=== PATIENT | female | born 1995 | race Caucasian/White ===

== ENCOUNTER → 2019-10-25 | Outpatient (CLI) | payer OTHER | LOC: LAB 14:39 | PROVIDERS: ATTEND Physician Assistant Medical | DX: Z33.1 Pregnant state, incidental (principal) | CPT/HCPCS: 36415; 84702 ==

== ENCOUNTER → 2019-11-21 | Outpatient (CLI) | payer OTHER ==
[2019-11-21 15:16] LABS: BASO % 1 % (0-3); EOS # 0.1 x10^3/uL (0.0-0.7); EOS % 1 % (0-3); HEMATOCRIT 35.5 % (36.0-47.0); HEMOGLOBIN 11.4 g/dL (12.0-15.5); LYMPH # 1.7 x10^3/uL (1.0-4.8); LYMPH % 25 % (24-48); MEAN CORPUSCULAR HEMOGLOBIN 26 pg (25-35); MEAN CORPUSCULAR HGB CONC 32 g/dL (31-37); MEAN CORPUSCULAR VOLUME 81 fL (79-100); MONO # 0.7 x10^3/uL (0.0-1.1); MONO % 10 % (0-9); NEUT # 4.6 x10^3uL (1.8-7.7); NEUT % 64 % (31-73); PLATELET COUNT 345 x10^3/uL (140-400); RED BLOOD COUNT 4.41 x10^6/uL (3.50-5.40); RED CELL DISTRIBUTION WIDTH 19.1 % (11.5-14.5); WHITE BLOOD COUNT 7.2 x10^3/uL (4.0-11.0)
[2019-11-22 14:29] LABS: FREE T4 1.01 ng/dL (0.76-1.46); THYROID STIM HORMONE (TSH) 0.831 uIU/mL (0.358-3.740)
[2019-11-22 16:07] LABS: RUBELLA IGG ANTIBODY 2.44 index (Immune >0.99)
== END ==
LOC: LAB 13:37
PROVIDERS: ATTEND Obstetrics & Gynecology
DX: Z34.91 Encounter for supervision of normal pregnancy, unspecified, first trimester (principal); Z3A.00 Weeks of gestation of pregnancy not specified
CPT/HCPCS: 36415; 81220; 84439; 84443; 85025; 86592; 86703; 86762; 86787; 86803; 86850; 86900; 86901; 87340

== ENCOUNTER → 2019-11-22 | Outpatient (CLI) | payer OTHER ==
--- NOTE | 2019-11-22 20:20 | RAD ---
OB <14 WKS W/TV DATE: 11/22/2019 12:00 AM INDICATION: Reason: ENCOUTER OF PREG IN TRI. LMP 09/23/2019. COMPARISON: None. TECHNIQUE: Transabdominal ultrasonography of the pelvis was performed. Color Doppler and duplex were utilized as appropriate. FINDINGS: The uterus measures 11.7 x 7.7 cm. There is living intrauterine gestation with heart rate of 178 beats per minute. There is small yolk sac present. South Heart-rump length measurement of 1.9 cm corresponds with estimated ultrasound gestational age of 8 weeks and 3 days. 2 areas with subchorionic blood products, the first anteriorly measures 4.1 x 4.6 x 0.8 cm. The second posteriorly into the right measures 3.0 x 0.9 x 0.8 cm There is no free pelvic fluid. Incidental nabothian cysts. The right ovary measures 3.7 x 3.5 x 2.0 cm. The left ovary measures 5.8 x 3.8 x 3.8 cm. No evidence of ovarian torsion. There is normal blood flow to both ovaries by color Doppler with arterial and venous waveforms detected. Left ovarian complex cyst measuring 3.8 cm, probably corpus luteal cyst. IMPRESSION: 1. Single living intrauterine gestation. 2. South Heart-rump length corresponds with estimated ultrasound gestational age of 8 weeks and 3 days. 3. Two areas of subchorionic blood products noted. Electronically signed by: Francis Jacome MD (11/22/2019 8:17 PM) [id number]
== END ==
LOC: US 17:19
PROVIDERS: ATTEND Obstetrics & Gynecology
DX: Z34.91 Encounter for supervision of normal pregnancy, unspecified, first trimester (principal); N88.8 Other specified noninflammatory disorders of cervix uteri; Z3A.08 8 weeks gestation of pregnancy
CPT/HCPCS: 76801; 76817

== ENCOUNTER → 2020-01-10 | Outpatient (CLI) | payer OTHER | LOC: LAB 13:51 | PROVIDERS: ATTEND Internal Medicine Cardiovascular Disease | DX: Z20.828 Contact with and (suspected) exposure to other viral communicable diseases (principal) | CPT/HCPCS: 36415; U0003 ==

== ENCOUNTER → 2020-01-16 | Outpatient (CLI) | payer OTHER | LOC: LAB 15:30 | PROVIDERS: ATTEND Obstetrics & Gynecology | DX: Z34.92 Encounter for supervision of normal pregnancy, unspecified, second trimester (principal); Z3A.00 Weeks of gestation of pregnancy not specified | CPT/HCPCS: 36415; 81511 ==

== ENCOUNTER → 2020-01-17 | Outpatient (CLI) | payer OTHER | END | disposition home or self-care (01) | LOC: LAB 11:10 | PROVIDERS: ATTEND Internal Medicine Cardiovascular Disease | DX: Z20.828 Contact with and (suspected) exposure to other viral communicable diseases (principal) | CPT/HCPCS: C9803; U0003; 36415 ==

== ENCOUNTER → 2020-02-16 | Outpatient (CLI) | payer OTHER ==
--- NOTE | 2020-02-16 14:22 | RAD ---
EXAM: Obstetrics sonogram. HISTORY: anatomy survey. TECHNIQUE: Sonographic imaging of a gravid uterus was performed. COMPARISON: 11/22/2019. FINDINGS: There is a single intrauterine fetus in cephalic presentation with a normal heart rate of 136 bpm. There is a three-vessel umbilical cord with normal insertion. The stomach, kidneys, bladder, spine, brain, facial profile, extremities and heart are unremarkable. No breathing motion is seen during the exam. This is within normal limits for a gestational age. The cervix is closed and measures 5.2 cm in length. The maternal adnexal regions are unremarkable. There is a posterior placenta without evidence of placenta previa. The anatomic fluid index is normal at 12.3 cm. The biparietal diameter is 4.75 cm, corresponding with 20 weeks and 3 days and the 29th percentile. The head circumference is 18.06 cm, corresponding with 20 weeks and 3 days and the 25th percentile. The abdominal circumference is 15.52 cm, corresponding with 20 weeks and 5 days and the 38th percentile. The femoral length is 3.66 cm, corresponding with 21 weeks and 4 days and the 68th percentile. The estimated gestational age based on combined ultrasound measurements is 20 weeks and 6 days and the estimated weight is 394 g. IMPRESSION: 1. Single intrauterine fetus with normal heart rate and gestational age based on ultrasound measurements of 20 weeks and 6 days. The estimated gestational age based on LMP is also 20 weeks and 6 days. 2. Unremarkable anatomy survey. Electronically signed by: Sada Calle MD (02/16/2020 2:19 PM) [facility]
== END | disposition home or self-care (01) ==
LOC: US 09:48
PROVIDERS: ATTEND Obstetrics & Gynecology
DX: O26.842 Uterine size-date discrepancy, second trimester (principal); Z3A.20 20 weeks gestation of pregnancy
CPT/HCPCS: 76805

== ENCOUNTER → 2020-03-19 | Outpatient (CLI) | payer OTHER ==
--- NOTE | 2020-03-20 07:45 | RAD ---
INDICATION: Reason: LLE SWELLING, / Spl. Instructions: / History: COMPARISON: None. TECHNIQUE: Grayscale, color and doppler ultrasound images were obtained of the left lower extremity venous vasculature. LEFT: No thrombus identified in the common femoral vein, femoral vein, popliteal vein or visualized calf veins. IMPRESSION: * No thrombus identified in deep venous system of the left lower extremity. Electronically signed by: Merrill Shultz MD (03/20/2020 7:42 AM) [id number]
== END | disposition home or self-care (01) ==
LOC: US 17:25
PROVIDERS: ATTEND Obstetrics & Gynecology
DX: R22.42 Localized swelling, mass and lump, left lower limb (principal); M79.89 Other specified soft tissue disorders
CPT/HCPCS: 93971

== ENCOUNTER → 2020-03-19 | Outpatient (CLI) | payer OTHER | END | disposition home or self-care (01) | LOC: LAB 15:07 | PROVIDERS: ATTEND Obstetrics & Gynecology | DX: Z34.92 Encounter for supervision of normal pregnancy, unspecified, second trimester (principal); Z3A.25 25 weeks gestation of pregnancy | CPT/HCPCS: 87086 ==

== ENCOUNTER → 2020-03-20 | Outpatient (CLI) | payer OTHER ==
[2020-03-20 11:30] LABS: BASO % 0 % (0-3); EOS # 0.1 x10^3/uL (0.0-0.7); EOS % 1 % (0-3); HEMATOCRIT 30.3 % (36.0-47.0); HEMOGLOBIN 9.9 g/dL (12.0-15.5); LYMPH # 2.2 x10^3/uL (1.0-4.8); LYMPH % 17 % (24-48); MEAN CORPUSCULAR HEMOGLOBIN 27 pg (25-35); MEAN CORPUSCULAR HGB CONC 33 g/dL (31-37); MEAN CORPUSCULAR VOLUME 83 fL (79-100); MONO # 0.6 x10^3/uL (0.0-1.1); MONO % 5 % (0-9); NEUT # 10.2 x10^3uL (1.8-7.7); NEUT % 78 % (31-73); PLATELET COUNT 386 x10^3/uL (140-400); RED BLOOD COUNT 3.66 x10^6/uL (3.50-5.40); RED CELL DISTRIBUTION WIDTH 15.5 % (11.5-14.5); WHITE BLOOD COUNT 13.1 x10^3/uL (4.0-11.0)
== END | disposition home or self-care (01) ==
LOC: LAB 07:39
PROVIDERS: ATTEND Obstetrics & Gynecology
DX: Z34.92 Encounter for supervision of normal pregnancy, unspecified, second trimester (principal); Z3A.25 25 weeks gestation of pregnancy
CPT/HCPCS: 36415; 82950; 85025

== ENCOUNTER → 2020-04-29 | Outpatient (CLI) | payer OTHER | LOC: LAB 09:34 | PROVIDERS: ATTEND Internal Medicine Cardiovascular Disease | DX: R05 Cough (principal); R09.81 Nasal congestion; Z20.828 Contact with and (suspected) exposure to other viral communicable diseases | CPT/HCPCS: U0003 ==

== ENCOUNTER 2020-05-21 13:02 | Emergency (ER) | payer OTHER ==
[~2020-05-21] VITALS: Ht 162.6 cm; Wt 95.5 kg
[2020-05-21] MEDS: IV NORMAL SALINE 1,000ML 1,000 ML IV ONE (13:15)
[2020-05-21 13:45] LABS: BASO # 0.1 x10^3/uL (0.0-0.2); BASO % 1 % (0-3); EOS # 0.1 x10^3/uL (0.0-0.7); EOS % 1 % (0-3); HEMOGLOBIN 11.4 g/dL (12.0-15.5); LYMPH # 2.3 x10^3/uL (1.0-4.8); LYMPH % 17 % (24-48); MEAN CORPUSCULAR HEMOGLOBIN 27 pg (25-35); MEAN CORPUSCULAR HGB CONC 32 g/dL (31-37); MEAN CORPUSCULAR VOLUME 84 fL (79-100); MONO # 0.6 x10^3/uL (0.0-1.1); MONO % 5 % (0-9); NEUT # 10.5 x10^3uL (1.8-7.7); NEUT % 77 % (31-73); PLATELET COUNT 389 x10^3/uL (140-400); RED BLOOD COUNT 4.31 x10^6/uL (3.50-5.40); RED CELL DISTRIBUTION WIDTH 20.3 % (11.5-14.5); WHITE BLOOD COUNT 13.6 x10^3/uL (4.0-11.0)
[2020-05-21 14:01] LABS: CALCIUM 9.6 mg/dL (8.5-10.1); CREATININE 0.7 mg/dL (0.6-1.0); GFR 101.1; POTASSIUM 3.3 mmol/L (3.5-5.1)
[2020-05-21 14:08] VITALS: BP 104/80
[2020-05-21 14:33] LABS: ALBUMIN 2.9 g/dL (3.4-5.0); ALBUMIN/GLOBULIN RATIO 0.7 (1.0-1.7); MAGNESIUM 1.7 mg/dL (1.8-2.4); PLT ESTIMATE INCREASED (ADEQUATE); POLYCHROMASIA PRESENT; TOTAL BILIRUBIN 0.5 mg/dL (0.2-1.0); TOTAL PROTEIN 7.1 g/dL (6.4-8.2)
[2020-05-21 14:34] LABS: ANISOCYTOSIS SLIGHT
[2020-05-21 14:35] LABS: OVALOCYTES OCC
[2020-05-21] MEDS ORDERED: POTASSIUM CHLORIDE 20 MEQ TABLET.ER. PO ONE (15:15)
[2020-05-21] MEDS ORDERED: MAGNESIUM SULFATE 2GM 50 ML IV ONE (15:15)
[2020-05-21 15:21] LABS: CLARITY,URINE CLEAR; COLOR,URINE YELLOW
[2020-05-21 15:22] LABS: BACTERIA,URINE MOD /HPF (0-FEW); BILIRUBIN,URINE NEG (NEG); GLUCOSE,URINE NEG (NEG); NITRITE,URINE NEG (NEG); SQUAMOUS EPITHELIAL CELL,UR MOD /LPF; UROBILINOGEN,URINE 0.2 mg/dL (0.2 mg/dL)
[2020-05-21] MEDS ORDERED: MAGNESIUM CHLORIDE ER 64 MG TABLET.ER PO ONE ×2 (15:53→16:00)
--- NOTE | 2020-05-21 15:59 | PHYS DOC ---
Past History Past Medical History: No Pertinent History Past Surgical History: No Surgical History Alcohol Use: None General Adult EDM: Chief Complaint: HYPOTENSION HPI: HPI: Patient is a [age] year old [sex] who presents with [] Review of Systems: Review of Systems: Constitutional: Denies fever or chills Eyes: Denies redness or eye pain HENT: Denies nasal congestion or sore throat Respiratory: Denies cough or shortness of breath Cardiovascular: Denies chest pain or palpitations GI: Denies abdominal pain, nausea, or vomiting : Denies dysuria or hematuria Musculoskeletal: Denies back pain or joint pain Integument: Denies rash or skin lesions Neurologic: Denies headache, focal weakness or sensory changes Complete systems were reviewed and found to be within normal limits, except as documented in this note. Current Medications: Current Meds: Current Medications Medications (Trade) Dose Ordered Sig/Arely Start Time Stop Time Status Last Admin Dose Admin Magnesium Chloride (Mag Delay) 64 mg STK-MED ONCE 05/21/20 15:53 05/21/20 15:53 DC Magnesium Sulfate 50 ml @ 25 mls/hr 1X ONCE 05/21/20 15:15 05/21/20 15:54 DC Potassium Chloride (Klor-Con) 40 meq 1X ONCE 05/21/20 15:15 05/21/20 15:16 DC Sodium Chloride 1,000 ml @ 1,000 mls/hr 1X ONCE 05/21/20 13:15 05/21/20 14:14 DC 05/21/20 13:15 1,000 MLS/HR Allergies: Allergies: Allergies Coded Allergies Type Severity Reaction Last Updated Verified amoxicillin Allergy Unknown 05/21/20 Yes Physical Exam: PE: Constitutional: Well developed, well nourished, no acute distress, non-toxic appearance HENT: Normocephalic, atraumatic Eyes: PERRL, EOMI, conjunctiva normal, no discharge Neck: Normal range of motion, no tenderness, supple Lungs & Thorax: No respiratory distress, equal chest rise and fall Abdomen: Soft, no tenderness Skin: Warm, dry, no erythema, no rash Back: No tenderness, no CVA tenderness Extremities: No tenderness, ROM intact, no edema Neurologic: Alert and oriented X 3, normal motor function, normal sensory function, no focal deficits noted Psychologic: Affect normal, judgment normal Current Patient Data: Labs: Laboratory Tests Test 05/21/20 13:14 05/21/20 13:23 05/21/20 14:50 Glucose (Fingerstick) 119 mg/dL (70-99) H White Blood Count 13.6 x10^3/uL (4.0-11.0) H Red Blood Count 4.31 x10^6/uL (3.50-5.40) Hemoglobin 11.4 g/dL (12.0-15.5) L Hematocrit 36.0 % (36.0-47.0) Mean Corpuscular Volume 84 fL (79-100) Mean Corpuscular Hemoglobin 27 pg (25-35) Mean Corpuscular Hemoglobin Concent 32 g/dL (31-37) Red Cell Distribution Width 20.3 % (11.5-14.5) H Platelet Count 389 x10^3/uL (140-400) Neutrophils (%) (Auto) 77 % (31-73) H Lymphocytes (%) (Auto) 17 % (24-48) L Monocytes (%) (Auto) 5 % (0-9) Eosinophils (%) (Auto) 1 % (0-3) Basophils (%) (Auto) 1 % (0-3) Neutrophils # (Auto) 10.5 x10^3uL (1.8-7.7) H Lymphocytes # (Auto) 2.3 x10^3/uL (1.0-4.8) Monocytes # (Auto) 0.6 x10^3/uL (0.0-1.1) Eosinophils # (Auto) 0.1 x10^3/uL (0.0-0.7) Basophils # (Auto) 0.1 x10^3/uL (0.0-0.2) Platelet Estimate Increased (ADEQUATE) Large Platelets Occ Polychromasia Present Anisocytosis Slight Macrocytosis Slight Ovalocytes Occ Sodium Level 135 mmol/L (136-145) L Potassium Level 3.3 mmol/L (3.5-5.1) L Chloride Level 102 mmol/L (98-107) Carbon Dioxide Level 21 mmol/L (21-32) Anion Gap 12 (6-14) Blood Urea Nitrogen 9 mg/dL (7-20) Creatinine 0.7 mg/dL (0.6-1.0) Estimated GFR (Cockcroft-Gault) 101.1 BUN/Creatinine Ratio 13 (6-20) Glucose Level 115 mg/dL (70-99) H Calcium Level 9.6 mg/dL (8.5-10.1) Magnesium Level 1.7 mg/dL (1.8-2.4) L Total Bilirubin 0.5 mg/dL (0.2-1.0) Aspartate Amino Transferase (AST) 11 U/L (15-37) L Alanine Aminotransferase (ALT) 14 U/L (14-59) Alkaline Phosphatase 150 U/L (46-116) H Total Protein 7.1 g/dL (6.4-8.2) Albumin 2.9 g/dL (3.4-5.0) L Albumin/Globulin Ratio 0.7 (1.0-1.7) L Urine Collection Type Unknown Urine Color Yellow Urine Clarity Clear Urine pH 7.0 Urine Specific [place] 1.020 Urine Protein Neg (NEG-TRACE) Urine Glucose (UA) Neg mg/dL (NEG) Urine Ketones (Stick) Neg mg/dL (NEG) Urine Blood Neg (NEG) Urine Nitrite Neg (NEG) Urine Bilirubin Neg (NEG) Urine Urobilinogen Dipstick 0.2 mg/dL (0.2 mg/dL) Urine Leukocyte Esterase Small (NEG) Urine RBC 1-2 /HPF (0-2) Urine WBC 1-4 /HPF (0-4) Urine Squamous Epithelial Cells Mod /LPF Urine Bacteria Mod /HPF (0-FEW) Vital Signs: Vital Signs Date Time Temp Pulse Resp B/P (MAP) Pulse Ox O2 Delivery O2 Flow Rate FiO2 05/21/20 14:08 85 18 104/80 (88) 98 EKG: EKG: [] Radiology/Procedures: Radiology/Procedures: [] Course & Med Decision Making: Course & Med Decision Making Pertinent Lab studies reviewed. (See chart for details) Patient stable for discharge with outpatient follow-up with PCP/OB. Discussed findings and plan with patient, who acknowledges understanding and agreement. Jesus Disclaimer: Jeuss Disclaimer: This electronic medical record was generated, in whole or in part, using a voice recognition dictation system. Departure Departure: Impression: Primary Impression: Dizziness Additional Impressions: Qualified Codes: Z3A.34 - 34 weeks gestation of Hypokalemia Hypomagnesemia Disposition: 01 DC HOME SELF CARE/HOMELESS Condition: STABLE Referrals: ANGE VALDEZ (PCP) Patient Instructions: ABCs of , Dizziness, [id number], Hypokalemia, Hypomagnesemia Additional Instructions: Increase fluid hydration. 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 Wear tube socks to held with leg swelling. Elevate legs as much as possible. MATHEUS CARMONA DO May 21, 2020 15:59
== END 2020-05-21 16:18 | disposition home or self-care (01) ==
LOC: ER 13:02
DX: O99.283 Endocrine, nutritional and metabolic diseases complicating pregnancy, third trimester (principal); E87.6 Hypokalemia; E83.42 Hypomagnesemia; R42 Dizziness and giddiness; O26.53 Maternal hypotension syndrome, third trimester; Z3A.34 34 weeks gestation of pregnancy; Z88.1 Allergy status to other antibiotic agents
CPT/HCPCS: 36415; 80053; 81001; 82947; 83735; 85025; 87086; 96360; 99283; J7030

== ENCOUNTER → 2020-10-25 | Outpatient (CLI) | payer OTHER ==
--- NOTE | 2020-10-25 10:59 | RAD ---
EXAM: Left shoulder, 4 views. HISTORY: Pain. COMPARISON: None. FINDINGS: 4 views of the left shoulder obtained. There is no fracture, dislocation or subluxation. No foreign body is seen. There is no lytic or sclerotic osseous lesion. IMPRESSION: No acute osseous finding. Electronically signed by: Sada Calle MD (10/25/2020 10:56 AM) [id number]
== END ==
LOC: RAD 10:31
PROVIDERS: ATTEND Physician Assistant
DX: M25.512 Pain in left shoulder (principal)
CPT/HCPCS: 73030

== ENCOUNTER → 2020-11-28 | Outpatient (CLI) | payer OTHER ==
--- NOTE | 2020-11-28 13:09 | RAD ---
Three-view cervical spine series Clinical indications: Neck pain. Left shoulder injury. FINDINGS: No acute fracture or discitis or lytic process is evident. Alignment is normal and no anter olisthesis is seen. No perching of facet joints is seen. The spinous processes are intact. No prevert ebral soft tissue swelling is evident. No degenerative disc space narrowing or endplate spurring is s een. IMPRESSION: No acute osseous abnormality. Electronically signed by: Marco A Newman MD (11/28/2020 1:07 PM) [id number]
== END ==
LOC: DXRAD 12:17
PROVIDERS: ATTEND Physician Assistant
DX: M54.2 Cervicalgia (principal)
CPT/HCPCS: 72040

== ENCOUNTER → 2021-07-29 | Outpatient (CLI) | payer OTHER ==
[2021-07-29 14:35] LABS: BASO % 1 % (0-3); EOS % 1 % (0-3); HEMATOCRIT 36.8 % (36.0-47.0); HEMOGLOBIN 11.9 g/dL (12.0-15.5); LYMPH # 2.3 x10^3/uL (1.0-4.8); LYMPH % 31 % (24-48); MEAN CORPUSCULAR HEMOGLOBIN 26 pg (25-35); MEAN CORPUSCULAR HGB CONC 32 g/dL (31-37); MEAN CORPUSCULAR VOLUME 79 fL (79-100); MONO # 0.3 x10^3/uL (0.0-1.1); MONO % 4 % (0-9); NEUT # 4.7 x10^3uL (1.8-7.7); NEUT % 64 % (31-73); PLATELET COUNT 441 x10^3/uL (140-400); RED BLOOD COUNT 4.66 x10^6/uL (3.50-5.40); RED CELL DISTRIBUTION WIDTH 15.8 % (11.5-14.5); WHITE BLOOD COUNT 7.4 x10^3/uL (4.0-11.0)
[2021-07-29 14:41] LABS: ALBUMIN 3.8 g/dL (3.4-5.0); ALBUMIN/GLOBULIN RATIO 0.9 (1.0-1.7); CREATININE 0.8 mg/dL (0.6-1.0); POTASSIUM 4.1 mmol/L (3.5-5.1); TOTAL BILIRUBIN 0.7 mg/dL (0.2-1.0); TOTAL PROTEIN 7.9 g/dL (6.4-8.2)
[2021-07-30 19:09] LABS: FREE T4 1.18 ng/dL (0.76-1.46); THYROID STIM HORMONE (TSH) 0.968 uIU/mL (0.358-3.740)
== END ==
LOC: LAB 13:21
PROVIDERS: ATTEND Physician Assistant Medical
DX: R63.5 Abnormal weight gain (principal); R53.83 Other fatigue; L65.9 Nonscarring hair loss, unspecified
CPT/HCPCS: 36415; 80053; 82306; 82607; 82728; 83540; 83550; 84439; 84443; 85025

== ENCOUNTER → 2021-10-28 | Outpatient (CLI) | payer OTHER | LOC: LAB 14:52 | PROVIDERS: ATTEND Physician Assistant Medical | DX: Z01.419 Encounter for gynecological examination (general) (routine) without abnormal findings (principal) | CPT/HCPCS: 87623; 88175 ==